=== PATIENT | female | born 1955 | race Caucasian/White ===

== ENCOUNTER 2024-04-09 10:32 | Emergency (ER) | payer OTHER, MEDICARE, SELFPAY ==
[2024-04-09 10:36] VITALS: BP 159/82; PULSE 78; TEMP 36.6; O2SAT 97; BMI 26.8
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
--- NOTE | 2024-04-09 10:39 | ECG_ITS ---
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
[2024-04-09 11:06] LABS: Basophils Absolute Auto 0.1 10^3/uL (0.0-0.1); Basophils Percent Auto 0.3 % (0.2-2.0); Eosinophils Percent Auto 0.2 % (0.9-7.0); Hematocrit 39.2 % (36.0-48.0); Hemoglobin 13.3 g/dL (12.0-16.0); Immature Granulocytes Abs Auto 0.17 10^3/uL (0.00-0.03); Immature Granulocytes Pct Auto 1.1 % (0.0-0.5); Lymphocytes Absolute Auto 1.1 10^3/uL (1.2-3.8); Lymphocytes Percent Auto 6.6 % (20.5-60.0); Mean Corpuscular HGB Conc 33.9 g/dL (29.9-35.2); Mean Corpuscular Hemoglobin 30.9 pg (26.7-34.0); Mean Corpuscular Volume 91.2 fL (81.0-99.0); Mean Platelet Volume 9.5 fL (9.5-13.5); Monocytes Absolute Auto 0.4 10^3/uL (0.3-0.8); Monocytes Percent Auto 2.5 % (1.7-12.0); Neutrophils Absolute Auto 14.3 10^3/uL (1.4-6.5); Neutrophils Percent Auto 89.3 % (43.0-75.0); Platelet Count 263 10^3/uL (150-450); Red Cell Distribution Width 14.1 % (11.0-15.0)
[2024-04-09 11:16] LABS: INR 0.99; Partial Thromboplastin Time 26.8 sec (22.3-36.2); Prothrombin Time 10.5 sec (9.0-11.6)
[2024-04-09 11:19] LABS: Alanine Aminotransferase 29 U/L (14-59); Albumin Globulin Ratio 1.1; Albumin Level 3.6 g/dL (3.4-5.0); Alkaline Phosphatase 85 U/L (46-116); Anion Gap 17.2; Aspartate Amino Transferase 26 U/L (15-37); BUN Creatinine Ratio 14.8; Bilirubin Total 0.9 mg/dL (0.2-1.0); Calcium 9.1 mg/dL (8.5-10.1); Carbon Dioxide 23.4 mmol/L (21.0-32.0); Chloride 103 mmol/L (98-107); Estimated GFR (African America >60 (>=60); Estimated GFR (Non-African Ame >60 (>=60); Globulin 3.4 g/dL; Glucose 121 mg/dL (74-106); Potassium 3.6 mmol/L (3.5-5.1); Sodium 140 mmol/L (136-145); Troponin I High Sensitivity <4.0 pg/mL (4.0-51.3)
[2024-04-09] MEDS: ADACEL DIPH,PERTUSS(ACELL),TET VAC/PF 0.5 ML ADULT SYRINGE IM (12:06)
[2024-04-09 12:08] VITALS: BP 167/76; PULSE 74; O2SAT 97
[2024-04-09 13:19] VITALS: BP 164/72; PULSE 88; O2SAT 98
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
== END 2024-04-09 14:21 | disposition left against medical advice (07) ==
PROVIDERS: Emergency Provider Emergency Medicine; Family Provider Internal Medicine
DX: S50.11XA Contusion of right forearm, initial encounter (principal); S80.01XA Contusion of right knee, initial encounter; S50.312A Abrasion of left elbow, initial encounter; S80.212A Abrasion, left knee, initial encounter; S80.211A Abrasion, right knee, initial encounter; V53.5XXA Driver of pick-up truck or van injured in collision with car, pick-up truck or van in traffic accident, initial encounter; Z53.29 Procedure and treatment not carried out because of patient's decision for other reasons; Z23 Encounter for immunization
CPT/HCPCS: 36415; 70450; 71045; 71250; 72125; 73080; 73090; 73562; 74176; 80053; 84484; 85025; 85610; 85730; 86850; 86900; 86901; 90471; 90715; 93005; 99285

== ENCOUNTER 2024-09-01 09:12 | Outpatient (OUT) | payer MEDICARE, SELFPAY ==
--- OUTSIDE RECORDS SUMMARY | 2024-09-01 09:18 | XMS_ITS | CCD ---
Author Organization [facility] Care Team Providers Care [employer] Teacher Name Role Phone PAT KINCAID Referring Unavailable PAT KINCAID Primary Care Unavailable BINTA PRAJAPATI Attending UnavailColin Benítez MD Primary Care Provider Binta Prajapati NP Unavailable Allergies Allergy Classification Reported Allergen(s) Allergy Type Date of Onset Reaction(s) Facility (3 sources) Acetaminophen / HYDROcodone; Translations: [HYDROCODONE-ACET AMINOPHEN] Drug Allergy 05-11-20 16 [facility] (1 source) Adhesive agent; Translations: [ADHESIVE] Propensity to adverse reactions to drug (disorder) 05-11-20 16 [facility] (1 source) Contrast media; Translations: [DYE] Propensity to adverse reactions to drug (disorder) 03-11-20 18 [facility] (1 source) HYMENOPTERA ALLERGENIC EXTRACT; Translations: [HYMENOPTERA ALLERGENIC EXTRACT] Drug Allergy 05-11-20 16 [facility] (1 source) NSAIDs; Translations: [NSAIDS (NON-STEROIDAL ANTI-INFLAMMATORY DRUG)] Propensity to adverse reactions to drug (disorder) 05-11-20 16 [facility] (1 source) VIT E-NONOXYNOL 9-ALOE VERA; Translations: [VIT E-NONOXYNOL 9-ALOE VERA] Propensity to adverse reactions to drug (disorder) 05-11-20 16 [facility] (5 sources) Acetaminophen Drug Allergy 03-11-20 24 GI intolerance [facility] (5 sources) HYDROcodone Drug Allergy 03-11-20 24 GI intolerance [facility] (3 sources) plastic tape Allergy to substance 03-11-20 24 Rash [facility] (2 sources) Non-steroidal anti-inflammatory agent Drug Intolerance 05-11-20 16 [facility] (2 sources) wasp venom Propensity to adverse reactions 05-11-20 16 [facility] (2 sources) Iodinated Contrast Media Propensity to adverse reactions 08-08-20 Anaphylaxis [facility] (2 sources) Wound Dressing Adhesive Drug Intolerance 05-11-20 16 [facility] Medications Current Medications Medication Drug Class(es) Dates Sig (Normalized) Sig (Original) clonazePAM 2 mg oral tablet (5 sources) Benzodiazepine Start: 08-10-2024 End: 09-09-2024 take 1 tablet by mouth at bedtime clonazePAM (KlonoPIN) 2 MG tablet Indications: Insomnia, unspecified type , Anxiety disorder, unspecified type Take 1 tablet (2 mg) by mouth at bedtime 30 tablet 08/10/2024 09/09/2024 Active Start: 03-11-2024 take 3 mg by mouth o nce daily at bedtime Clonazepam Active 3 MG PO Daily at bedtime March 11, 2024 12:00am DULoxetine 60 mg delayed release oral capsule (7 sources) Serotonin and Norepinephrine Reuptake Inhibitor Start: 08-21-2024 End: 08-21-2025 take 1 capsule by mouth once daily DULoxetine (Cymbalta) [address] capsule Indications: Bipolar affective disorder in remission (CMS/HCC) Take 1 capsule (60 mg) by mouth Daily Do not crush or chew. 30 capsule 11 08/21/2024 08/21/2025 Active Start: 08-21-2024 End: 08-21-2024 take 2 capsules by mouth in the morning DULoxetine (Cymbalta) [address] capsule Take 2 capsules (60 mg) by mouth in the morning. 08/21/2024 08/21/2024 Discontinued (Dose adjustment) Start: 03-11-2024 Duloxetine Act elis MG PO March 11, 2024 12:00am Start: 09-08-2023 End: 08-21-2024 take 1 capsule by mouth in the morning DULoxetine (Cymbalta) [address] capsule Take 30 mg by mouth in the morning. 09/08/2023 08/21/2024 Discontinued (Dose adjustment) pantoprazole 40 mg delayed release oral tablet (5 sources) Proton Pump Inhibitor Start: 03-11-2024 take 1 tablet by mouth before breakfast pantoprazole (ProtoNix) 40 MG EC tablet take 1 tablet by mouth in the morning before breakfast 03/11/2024 Active Start: 03-11-2024 Pantoprazole A ctive MG PO March 11, 2024 12:00am predniSONE 20 mg oral tablet (6 sources) Start: 04-14-2024 End: 06-07-2024 take 3 tablets by mouth once daily, then take 2 tablets by mouth once daily, then take 1 tablet by mouth once daily Prednisone Active 20 MG PO .COMPLEX June 07, 2024 12:00am Take 3 tabs po daily x 3 days, then take 2 tabs po daily x 3 days, then take 1 tab po daily x 3 days. Start: 03-11-2024 End: 04-14-2024 take 1 tablet by mouth three times daily, then take 1 tablet by mouth twice daily, then take 1 tablet by mouth once daily, then take 0.5 tablet by mouth once daily, then take 0.5 tablet by mouth every other day Prednisone Discontinued 20 MG PO .COMPLEX 14 March 11, 2024 12:00am April 14, 2024 11:35am Take 1 tablet p.o. 3 times daily x 2 days, 1 tablet p.o. twice daily x 2 days, 1 tablet daily x 2 days. 1/2 tablet daily x 2 days, 1/2 tablet every other day x 2 days. traZODone hydrochloride 150 mg oral tablet (6 sources) Serotonin Reuptake Inhibitor Start: 08-22-2024 take 1 tablet by mouth at bedtime traZODone (Desyrel) 150 MG tablet Indications: Other insomnia Take 1 tablet (150 mg) by mouth at bedtime 30 tablet 1 08/22/2024 Active Start: 03-11-2024 take 75 mg by mouth once daily at bedtime Trazodone Active 75 MG PO Daily at bedtime March 11, 2024 12:00am End: 08-22-2024 take 0.5 tablet by mouth once daily traZODone (Desyrel) 150 MG tablet TAKE 1/2 (ONE-HALF) TABLET BY MOUTH NIGHTLY 08/22/2024 Discontinued (Reorder) Problems Active Problems Problem Classification Problem Date Documented Date Episodic/Chronic Administrative/socia l admission (2 sources) First encounter by subject; Translations: [Persons encountering health services in other specified circumstances] Onset: 08-08-2024 08-08-2024 Episodic Allergic reactions (8 sources) Contact dermatitis; Translations: [Unspecified contact dermatitis, unspecified cause] Onset: 08-08-2024 04-14-2024 Episodic Anxiety disorders (4 sources) Anxiety; Translations: [Anxiety disorder, unspecified] Onset: 03-02-2018 04-14-2024 Chronic Disorders of lipid metabolism (2 sources) Hyperlipidemia; Translations: [Hyperlipidemia, unspecified] Onset: 05-11-2016 08-08-2024 Chronic Esophageal disorders (4 sources) Gastroesophageal reflux disease; Translations: [Gastro-esophageal reflux disease without esophagitis] Onset: 05-11-2016 04-14-2024 Chronic Mood disorders (6 sources) Depressive disorder; Translations: [Depression, unspecified depression type (CMS/HCC)] Onset: 05-11-2016 08-21-2024 Chronic Osteoarthritis (2 sources) Osteoarthritis; Translations: [Unspecified osteoarthritis, unspecified site] Onset: 05-11-2016 08-08-2024 Chronic Other nutritional; endocrine; and metabolic disorders (2 sources) Overweight in adulthood with body mass index of 25 or more but less than 30; Translations: [Body mass index (BMI) 25.0-25.9, adult] Onset: 08-08-2024 08-08-2024 Episodic Other screening for suspected conditions (not mental disorders or infectious disease) (5 sources) Encounter for screening mammogram for malignant neoplasm of breast; Translations: [Patient encounter status] Onset: 12-20-2023 08-08-2024 Episodic Other upper respiratory disease (2 sources) Vasomotor rhinitis; Translations: [Vasomotor rhinitis] Onset: 02-01-2019 08-08-2024 Chronic Residual codes; unclassified (1 source) Insomnia; Translations: [Other insomnia] 08-22-2024 Chronic Spondylosis; intervertebral disc disorders; other back problems (2 sources) Cervical spondylosis; Translations: [Other spondylosis with radiculopathy, cervical region] Onset: 05-11-2016 08-08-2024 Chronic Unclassified (2 sources) Patient on antidepressant monitoring plan Onset: 08-21-2024 08-21-2024 Past or Other Problems Problem Classification Problem Date Documented Da te Episodic/Chronic Mood disorders (2 sources) Mood disorders Onset: 08-08-2024 08-08-2024 Other non-traumatic joint disorders (2 sources) Ankle joint pain; Translations: [Pain in unspecified ankle and joints of unspecified foot] Onset: 05-11-2016 08-08-2024 Episodic Other nutritional; endocrine; and metabolic disorders (2 sources) Severe obesity; Translations: [Morbid (severe) obesity due to excess calories] Onset: 06-08-2019 Resolved: 08-08-2024 08-08-2024 Chronic Other upper respiratory disease (2 sources) Deviated nasal septum; Translations: [Deviated nasal septum] Onset: 02-01-2019 08-08-2024 Episodic Other upper respiratory disease (2 sources) Hypertrophy of nasal turbinates; Translations: [Hypertrophy of nasal turbinates] Onset: 02-01-2019 08-08-2024 Episodic Residual codes; unclassified (4 sources) Insomnia; Translations: [Insomnia, unspecified] Onset: 05-11-2016 04-14-2024 Episodic Sprains and strains (2 sources) Strain of trapezius muscle; Translations: [Strain of other muscles, fascia and tendons at shoulder and upper arm level, unspecified arm, initial encounter] Onset: 03-02-2018 08-08-2024 Episodic Vital Signs Date Time Vital Sign Value Performing Clinician Ben lowery 06-07-2024 10:00-0400 Body height 163.83 cm [facility] 06-07-2024 10:00-0400 Body mass index (BMI) [Ratio] 25.2 kg/m2 [facility] 06-07-2024 10:00-0400 Body temperature 97.6 [degF] [facility] 06-07-2024 10:00-0400 Body weight 67.81 kg [facility] 06-07-2024 10:00-0400 Heart rate 68 /min [facility] 06-07-2024 10:00-0400 Respiratory rate 16 /min [facility] 06-07-2024 10:00-0400 SaO2% (BldA) [Mass fraction] 92 % [facility] 04-14-2024 11:06-0400 Body height 165.1 cm [facility] 04-14-2024 11:06-0400 Body mass index (BMI) [Ratio] 25.7 kg/m2 [facility] 04-14-2024 11:06-0400 Body temperature 97.7 [degF] [facility] 04-14-2024 11:06-0400 Body weight 70.3 kg [facility] 04-14-2024 11:06-0400 Heart rate 72 /min [facility] 04-14-2024 11:06-0400 SaO2% (BldA) [Mass fraction] 98 % [facility] 03-11-2024 11:18-0400 Body height 165.1 cm [facility] 03-11-2024 11:18-0400 Body mass index (BMI) [Ratio] 28.7 kg/m2 [facility] 03-11-2024 11:18-0400 Body temperature 98.6 [degF] [facility] 03-11-2024 11:18-0400 Body weight 78.24 kg [facility] 03-11-2024 11:18-0400 Heart rate 57 /min [facility] 03-11-2024 11:18-0400 Respiratory rate 16 /min [facility] 03-11-2024 11:18-0400 SaO2% (BldA) [Mass fraction] 97 % [facility] Encounters Encounter Date Encounter Type Care Provider Facility Start: 08-22-2024 End: 08-22-2024 Refill Binta Prajapati PRICING CONSULTANT Work Phone: [facility] Comment on above: Other insomnia (Prim victorino Dx) Start: 08-21-2024 End: 08-21-2024 Orders Only Binta Prajapati PRICING CONSULTANT Work Phone: [facility] Comment on above: Depression, unspecif ied depression type (CMS/HCC) (Primary Dx); Bipolar affective disorder in remission (CMS/HCC) Start: 08-08-2024 Patient encounter status Binta Prajapati PRICING CONSULTANT Work Phone: [facility] Start: 08-08-2024 End: 08-08-2024 ambulatory BINTA PRAJAPATI Not Available Start: 06-07-2024 End: 06-07-2024 ambulatory [facility] Work Phone: Start: 06-07-2024 End: 06-07-2024 Patient encounter procedure [facility] Physician [facility] Work Phone: Start: 04-14-2024 End: 04-14-2024 ambulatory [facility] Work Phone: Start: 04-14-2024 End: 04-14-2024 Patient encounter procedure [facility] Physician [facility] Work Phone: Start: 03-11-2024 End: 03-11-2024 ambulatory [facility] Work Phone: Start: 03-11-2024 End: 03-11-2024 Patient encounter procedure [facility] Physician [facility] Work Phone: Start: 12-20-2023 End: 12-21-2023 ambulatory [facility] Procedures Date Procedure Procedure Detail Performing Clinician Start: 12-20-2023 Mammography Binta boyd NP Work Phone: Plan of Treatment Date Care Activity Detail Author Start: 01-25-2026 Screening for malignant neoplasm of colon [facility] Start: 12-20-2024 Screening for malignant neoplasm of breast Mammogram [facility] Start: 09-19-2024 End: 09-19-2024 Patient encounter procedure 09/19/2024 9:30 AM EST Office Visit [facility] [address] [place] [address] Binta Prajapati NP [address] [place] [address] [facility] Start: 09-08-2024 Medicare Annual Wellness (AWV) Medicare Annual Wellness (AWV) [facility] Start: 08-30-2024 End: 08-30-2024 Patient encounter procedure 08/30/2024 1:30 PM EDT Office Visit [facility] [address] [place] [address] Keyshawn Armstrong DO [address] [place] [address] [facility] [address] Start: 07-16-2024 Influenza vaccination Influenza Vaccine (#1) [facility] Start: 04-14-2023 Screening for malignant neoplasm of colon CT Colonography [facility] Start: 2022 Pneumococcal Vaccine: 65+ Years (1 of 1 - PCV) Pneumococcal Vaccine: 65+ Years (1 of 1 - PCV) [facility] Start: 1955 Screening for malignant neoplasm of colon [facility] Payers Date Payer Category Payer Medicare AETNA MEDICARE A DVANTAGE AETNA MEDICARE REPLACEMENT [id number] 2024-Present [address] [place] [address] [id number] 2024 Private Health Insurance [id number] 2015 Medicare [id number] 1955 Unknown [id number] 1955 Unknown [id number] Social History Date Type Detail Facility Start: 03-11-2024 End: 08-08-2024 Tobacco smoking status NHIS Ex-smoker (finding) [facility] Start: 1955 Sex Assigned At Female F [facility] Start: 11-15-1970 History of tobacco use Current smoke r [facility] Start: 11-15-1970 History of tobacco use Cigarette Smo ker [facility] Start: 08-01-2024 End: 08-08-2024 Cigarettes smoked current (pack per day) - Reported 0.5 [facility] History of tobacco use Passive smoker [facility] Start: 08-08-2024 Tobacco use and exposure Smoke less tobacco non-user [facility] Start: 08-08-2024 Alcoholic beverage intake Defer [facility] Start: 08-01-2024 End: 08-08-2024 [id number] Health Literacy [facility] How often do you nee d to have someone help you when you read instructions, pamphlets, or other written material from your doctor or pharmacy [SILS] Never [facility] Do you belong to any clubs or organizations such as jew groups, unions, fraternal or athletic groups, or school groups? No [facility] Are you now , , , , never or living with a partner? [facility] How often to you hav e a drink containing alcohol? Never [facility] How hard is it for y ou to pay for the very basics like food, housing, medical care, and heating Somewhat hard [facility] Do you feel stress - tense, restless, nervous, or anxious, or unable to sleep at night because your mind is troubled all the time - these days [OSQ] To some extent [facility] (I/We) worried wheth er (my/our) food would run out before (I/we) got money to buy more. Sometimes true [facility] Start: 1955 Sex assigned at Not on file [facility] Goals Date Patient Goal Desired Activity /State Personal health goal Telephone encounter Note 08-22-2024 Telephone Encounter - Giovanna Phan - 08/22/2024 1:24 PM EDT Note Date & Type Note Facility 08-22-2024 Telephone encount er Note Patient stopped in saying the Clonazepam should be 3mg, not 2mg. JN [facility] Note 08-22-2024 Telephone Encounter - Giovanna Phan - 08/22/2024 1:24 PM EDT Note Date & Type Note Facility 08-22-2024 Miscellaneous Notes Formattin g of this note might be different from the original. Patient stopped in saying the Clonazepam should be 3mg, not 2mg. JN documented in this encounter [facility] Evaluation note Note Date & Type Note Facility Evaluation note No assessment information availa ble [facility] Work Phone: Evaluation note Note Date & Type Note Facility Evaluation note Diagnosis Onset Date Contact dermatitis noneactiv e Contact dermatitis acute [facility] Work Phone: Evaluation note Note Date & Type Note Facility Evaluation note Diagnosis Depression, unspecified depression type (CMS/HCC)- Primary Bipolar affective disorder in remission ([facility]) documented in this encounter [facility] Evaluation note Note Date & Type Note Facility Evaluation note Diagnosis Other insomnia- Primary documented in this encounter [facility] Summary Purpose Family History Relationship Condition Age at Onset Recorded Date/T edward father Malignant neoplasm Unknown Not Specified Dementia Unknown Relationship Condition Age at Onset Recorded Date/T edward father Malignant neoplasm Unknown mother Dementia Unknown Advance Directives Advance Directive Response Recorded Date/ Time Advance Directives No March 11 10:40am Chief Complaint and Reason for Visit Chief Complaint Rash, skin irritatio n Chief Complaint Rash, skin irritatio n Rash Reason for Visit Contact dermatitis Contact dermatitis Chief Complaint Rash, skin irritatio n Rash Rash on arms, face, neck Reason for Visit Contact dermatitis Contact dermatitis Additional Source Comments INFORMATION SOURCE (unrecogn ized section and content) DATE CREATED AUTHOR 12/25/2023 [facility] DATE CREATED AUTHOR AUTHOR'S ORGANIZ ATION 08/10/2024 [facility] Care Teams (unrecognized sec tion and content) Team Status: Active Member Role Status Dates Pat Kincaid APRN Primary Care Provider Active Team Status: Inactive Member Role Status Dates NILESH Leslie Attending Provider Active S tart: March 11, 2024 End: March 11, 2024 Pat Kincaid APRN Primary Care Provider Active Start: March 11, 2024 End: March 11, 2024 Team Status: Inactive Member Role Status Dates Pat Kincaid APRN Primary Care Provider Active Start: April 14, 2024 End: April 14, 2024 Radha Bueno APRN Attending Provider Active Start: April 14, 2024 End: April 14, 2024 Team Status: Inactive Member Role Status Dates Pat Kincaid APRN Primary Care Provider Active Start: June 07, 2024 End: June 07, 2024 Radha Bueno APRN Attending Provider Active Start: June 07, 2024 End: June 07, 2024 [employer] Teacher Relationship Specialty Start Date End Date Colin Sanchez MD [address] [place] [id number] PCP - General Family Medicine 07/24/24 Binta Prajapati NP [address] [place] [address] Nurse Practitioner Family Medicine 07/24/24 [employer] Teacher Relationship Specialty Start Date End Date Colin Sanchez MD [address] [place] [id number] PCP - General Family Medicine 07/24/24 Binta Prajapati NP [address] [place] [address] Nurse Practitioner Family Medicine 07/24/24 Goals (unrecognized section and content) Goals may be documented in a n alternate sectionGoals may be documented in an alternate sectionGoals may be documented in an alternate section Reason for Visit (unrecogniz ed section and content) Reason Onset Date Comments Med Refill 08/22/2024 FOR RECORDS PERTAINING TO PATIENTS WHO ARE OR HAVE BEEN ENROLLED IN A CHEMICAL DEPENDENCY/SUBSTANCEABUSE PROGRAM, SOME INFORMATION MAY BE OMITTED. This clinical summary was aggregated from multiple sources. Caution should be exercised in using it in the provision of clinical care. This summary normalizes information from multiple sources, and as a consequence, information in this document may materially change the coding, format and clinical context of patient data. In addition, data may be omitted in some cases. CLINICAL DECISIONS SHOULD BE BASED ON THE PRIMARY CLINICAL RECORDS. [facility] [facility]. provides no warranty or guarantee of the accuracy or completeness of information in this document.
[2024-09-01 09:58] LABS: Basophils Absolute Auto 0.1 10^3/uL (0.0-0.1); Eosinophils Absolute Auto 0.1 10^3/uL (0.0-0.7); Eosinophils Percent Auto 1.4 % (0.9-7.0); Hematocrit 40.1 % (36.0-48.0); Hemoglobin 13.6 g/dL (12.0-16.0); Immature Granulocytes Abs Auto 0.01 10^3/uL (0.00-0.03); Immature Granulocytes Pct Auto 0.1 % (0.0-0.5); Lymphocytes Absolute Auto 2.4 10^3/uL (1.2-3.8); Lymphocytes Percent Auto 30.3 % (20.5-60.0); Mean Corpuscular HGB Conc 33.9 g/dL (29.9-35.2); Mean Corpuscular Volume 91.3 fL (81.0-99.0); Mean Platelet Volume 9.9 fL (9.5-13.5); Monocytes Absolute Auto 0.5 10^3/uL (0.3-0.8); Monocytes Percent Auto 6.4 % (1.7-12.0); Neutrophils Absolute Auto 4.8 10^3/uL (1.4-6.5); Neutrophils Percent Auto 60.8 % (43.0-75.0); Platelet Count 253 10^3/uL (150-450); Red Blood Count 4.39 10^6/uL (4.20-5.40); Red Cell Distribution Width 12.7 % (11.0-15.0); White Blood Count 7.9 10^3/uL (4.0-11.0)
[2024-09-01 10:54] LABS: Estimated Average Glucose 105 mg/dL; Glycohemoglobin A1C 5.3 % (4.5-6.2)
[2024-09-01 11:11] LABS: Alanine Aminotransferase 22 U/L (14-59); Albumin Level 3.4 g/dL (3.4-5.0); Alkaline Phosphatase 96 U/L (46-116); Anion Gap 12.6; Aspartate Amino Transferase 18 U/L (15-37); BUN Creatinine Ratio 20.8; Bilirubin Total 0.4 mg/dL (0.2-1.0); Calcium 10.3 mg/dL (8.5-10.1); Carbon Dioxide 28.5 mmol/L (21.0-32.0); Chloride 106 mmol/L (98-107); Cholesterol 253 mg/dL (<=200); Estimated GFR (African America >60 (>=60 mL/min/1.73m^2); Estimated GFR (Non-African Ame >60 (>=60 mL/min/1.73m^2); Globulin 3.4 g/dL; Glucose 110 mg/dL (74-106); HDL Cholesterol 68 mg/dL (40-60); Potassium 4.1 mmol/L (3.5-5.1); Sodium 143 mmol/L (136-145); Total Protein 6.8 g/dL (6.4-8.2); Triglycerides 91 mg/dL (<=150); VLDL CHOLESTEROL 18.2 mg/dL
[2024-09-01 11:12] LABS: Chol HDL Ratio 3.7; TSH W/ REFLEX FT4 2.543 uIU/mL (0.358-3.740)
== END 2024-09-01 09:13 | disposition home or self-care (01) ==
LOC: LAB 09:16
PROVIDERS: Family Provider Internal Medicine
DX: Z00.00 Encounter for general adult medical examination without abnormal findings (principal)
CPT/HCPCS: 36415; 80053; 80061; 83036; 84443; 85025

== ENCOUNTER 2024-09-04 13:57 | Outpatient (OUT) | payer MEDICARE, SELFPAY ==
--- NOTE | 2024-09-04 14:29 | XR_ITS ---
The [address] [address] Patient Name: MARCELINA BUCHANAN MRN: [facility]:[id number] date: 1955 Sex: F Assigned Patient Location: [facility] Current Patient Location: Accession/Order Number: [id number] Exam Date: 09/04/2024 14:35 Report Date: 09/06/2024 06:23 At the request of: HILARIO PALMA Procedure: XR lumbar spine min 4V EXAMINATION: XR lumbar spine min 4V HISTORY: Low Back Pain At multiple Sites COMPARISON: CT abdomen pelvis 04/09/2024 FINDINGS: BONES: Moderate compression fracture of L3 vertebral body with loss of 30% of its anterior height. Greater density along superior margin. Mild degenerative facet arthropathy L4-L5, L5-S1. DISC SPACES: Mild narrowing L5-S1. PARASPINOUS: Negative. No paraspinous abnormality is seen. OTHER: Negative. XR/XR lumbar spine min 4V IMPRESSION: 1. L3 moderate compression fracture which appears to have progressed since 04/09/2024. Electronically authenticated by: DAILY KUNZ Date: 09/06/2024 06:23
== END 2024-09-04 13:58 | disposition home or self-care (01) ==
LOC: RAD 14:02
PROVIDERS: Family Provider Internal Medicine; Visit Provider Psychiatry & Neurology Neurology
DX: M54.50 Low back pain, unspecified (principal); M53.9 Dorsopathy, unspecified; M48.56XG Collapsed vertebra, not elsewhere classified, lumbar region, subsequent encounter for fracture with delayed healing
CPT/HCPCS: 72110

== ENCOUNTER 2024-09-30 14:10 | Emergency (ER) | payer MEDICARE, SELFPAY ==
[2024-09-30 14:14] VITALS: BP 169/101; PULSE 102; TEMP 36.9; O2SAT 98; BMI 25.2
--- OUTSIDE RECORDS SUMMARY | 2024-09-30 14:17 | XMS_ITS | CCD ---
Author Organization [facility] Inform ion Partnership [facility] Care Team Providers Care Reverse Logistics Analyst Name Role Phone Alee Loza Primary Care Provider ALEE KINCAID Referring Unavailable ALEE KINCAID Primary Care Unavailable Colin Sanchez MD Primary Care Provider [phone] Binta Nair NP Unavailable Unavailable Primary Care Provider UnavailBINTA Rosales Attending UnavailHILAROI Canela Attending Unavailable BINTA NAIR Referring UnavailDORIS Hillman Attending Unavailable HILARIO ARMSTORNG Referring Unavailable DORIS TURCIOS Attending Unavailable HILARIO ARMSTRONG Referring Unavailable ESSENCE SCHMIDT Attending Unavailable HILARIO ARMSTRONG Referring Unavailable BINTA NAIR Attending UnavailESSENCE Ruiz Attending Unavailable HILARIO ARMSTRONG Referring Unavailable ROSEMARY RODRÍGUEZ Attending Unavailable HILARIO ARMSTRONG Referring Unavailable DORIS TURCIOS Attending Unavailable HILARIO ARMSTRONG Referring Unavailable Allergies Allergy Classification Reported Allergen(s) Allergy Type Date of Onset Reaction(s) Facility (20 sources) Acetaminophen / HYDROcodone; Translations: [HYDROCODONE-ACET AMINOPHEN] Drug Allergy 05-11-20 16 [facility] (5 sources) Adhesive agent; Translations: [ADHESIVE] Propensity to adverse reactions to drug 05-11-20 16 [facility] (5 sources) Contrast media; Translations: [DYE] Propensity to adverse reactions to drug 03-11-20 18 Anaphylaxis [facility] (5 sources) HYMENOPTERA ALLERGENIC EXTRACT; Translations: [HYMENOPTERA ALLERGENIC EXTRACT] Drug Allergy 05-11-20 16 [facility] (5 sources) Non-steroidal anti-inflammatory agent; Translations: [NSAIDS (NON-STEROIDAL ANTI-INFLAMMATORY DRUG)] Propensity to adverse reactions to drug 05-11-20 16 [facility] Work Phone: (5 sources) Vit E-Nonoxynol 9-Aloe Vera; Translations: [VIT E-NONOXYNOL 9-ALOE VERA] Propensity to adverse reactions to drug 05-11-20 16 [facility] (20 sources) Acetaminophen Drug Allergy 03-11-20 24 GI intolerance [facility] (20 sources) HYDROcodone Drug Allergy 03-11-20 24 GI intolerance [facility] (3 sources) plastic tape Allergy to substance 03-11-20 Rash [facility] (17 sources) Non-steroidal anti-inflammatory agent Drug Intolerance 05-11-20 16 [facility] (17 sources) wasp venom Propensity to adverse reactions 05-11-20 16 [facility] (17 sources) Iodinated Contrast Media Propensity to adverse reactions 08-08-20 Anaphylaxis [facility] (17 sources) Wound Dressing Adhesive Drug Intolerance 05-11-20 16 [facility] Medications Current Medications Medication Drug Class(es) Dates Sig (Normalized) Sig (Original) acetaminophen 325 mg / oxyCODONE hydrochloride 10 mg oral tablet (5 sources) Opioid Agonist Start: 05-26-2024 oxyCODONE-acetaminoph en (PERCOCET) 10-325 mg per tablet Indications: Degeneration of intervertebral disc of cervical region , Post-traumatic osteoarthritis of right ankle , Cervical spondylosis with radiculopathy , Other chronic pain take 1 tablet by mouth every 6 hours if needed for pain maximum daily dose of 4 tablets 28 tablet 05/26/2024 Active Start: 03-10-2023 End: 11-11-2023 oxyCODONE-acetaminophen (PER COCET) 10-325 mg per tablet Indications: Degeneration of intervertebral disc of cervical region , Post-traumatic osteoarthritis of right ankle , Cervical spondylosis with radiculopathy , Other chronic pain take 1 tablet by mouth every 6 hours if needed for pain maximum daily dose of 4 tablets 28 tablet 0 11/11/2023 Active ascorbic acid 500 mg oral tablet (4 sources) Vitamin C take 1 tablet by koko th in the morning ascorbic acid, vitamin C, (VITAMIN C) 500 mg tablet Take 1 tablet (500 mg total) by mouth in the morning. Active b complex vitamins capsule (4 sources) take 1 capsule by mo uth in the morning b complex vitamins capsule Take 1 capsule by mouth in the morning. Active take 1 capsule by mouth in the m orning b complex vitamins capsule Take 1 capsule by mouth in the morning. 0 Active beta-carotene,A,-vits C,E/mi ns (VISION ORAL) (4 sources) beta-carotene,A, -vits C,E/mins (VISION ORAL) Take by mouth. Active beta-carotene,A, -vits C,E/mins (VISION ORAL) Take by mouth. 0 Active betamethasone 0.5 mg/ml topical cream (4 sources) Corticosteroid Start: 05-20-2021 betamethasone dipropionate 0.05 % cream Indications: Poison alis dermatitis Apply 1 application topically 2 (two) times a day. Do not use longer than 2 weeks 30 g 05/20/2021 Active biotin 1 mg oral tablet (4 sources) take 1 tablet by mouth three times daily biotin 1 mg tablet Take 1 tablet (1 mg total) by mouth 3 (three) times a day. Active cholecalciferol 0.025 mg oral capsule (4 sources) Vitamin D take 1 capsule by mouth in the morning cholecalciferol, vitamin D3, 25 mcg (1,000 unit) capsule Take 1 capsule (1,000 Units total) by mouth in the morning. Active clonazePAM 2 mg oral tablet (20 sources) Benzodiazepine Start: 10-04-2024 End: 12-03-2024 take 1.5 tablets by mouth at bedtime clonazePAM (KlonoPIN) 2 MG tablet Indications: Other insomnia Take 1.5 tablets (3 mg) by mouth at bedtime Do not start before October 04, 2024. 45 tablet 1 10/04/2024 12/03/2024 Active Start: 05-06-2024 End: 09-19-2024 take 1 tablet by mouth at bedtime clonazePAM (KlonoPIN) 2 MG tablet Indications: Insomnia, unspecified type , Anxiety disorder, unspecified type Take 1 tablet (2 mg) by mouth at bedtime 30 tablet 08/10/2024 09/19/2024 Discontinued (Dose adjustment) Start: 03-11-2024 take 3 mg by mouth o nce daily at bedtime Clonazepam Active 3 MG PO Daily at bedtime March 11, 2024 12:00am Start: 11-05-2023 End: 12-01-2023 clonazePAM (KlonoPIN) 2 mg t ablet Indications: Insomnia, unspecified type take 1 AND 1/2 tablets by mouth at bedtime 45 tablet 2 12/01/2023 Active DULoxetine 60 mg delayed release oral capsule (20 sources) Serotonin and Norepinephrine Reuptake Inhibitor Start: 08-21-2024 End: 08-21-2024 take 2 capsules by mouth in the morning DULoxetine (Cymbalta) [address] capsule Take 2 capsules (60 mg) by mouth in the morning. 08/21/2024 08/21/2024 Discontinued (Dose adjustment) Start: 03-11-2024 Duloxetine Act elis MG PO March 11, 2024 12:00am Start: 03-08-2024 End: 08-21-2025 take 1 capsule by mouth once daily DULoxetine (Cymbalta) [address] capsule Indications: Bipolar affective disorder in remission (CMS/HCC) Take 1 capsule (60 mg) by mouth Daily Do not crush or chew. 30 capsule 11 08/21/2024 08/21/2025 Active Start: 10-18-2023 take 1 capsule by mo uth in the morning DULoxetine (CYMBALTA) 60 mg capsule Take 1 capsule by mouth in the morning 30 capsule 5 10/18/2023 Active Start: 09-08-2023 End: 08-21-2024 take 1 capsule by mouth in the morning DULoxetine (CYMBALTA) 30 mg capsule Take 1 capsule (30 mg total) by mouth in the morning. For one week. 7 capsule 09/08/2023 Active Lactobacillus acidophilus (4 sources) Lactobacillus ac idophilus (PROBIOTIC ORAL) Take by mouth daily. Active Lactobacillus ac idophilus (PROBIOTIC ORAL) Take by mouth daily. 0 Active lysine 1000 mg oral tablet (4 sources) lysine 1,000 mg tablet Take by mouth. Active magnesium oxide 400 mg oral capsule (4 sources) magnesium oxide 400 mg capsule Magnesium CAPS Refills: 0 Active Active nystatin 880318 unt/ml topical cream (8 sources) Polyene Antifungal Start: 09-08-2023 nystatin (MYCOSTATIN) cream apply to affected area twice a day 30 g 09/08/2023 Active Start: 12-11-2020 NYAMYC powder apply to affected area four times a day 15 g 12/11/2020 Active pantoprazole 40 mg delayed release oral tablet (20 sources) Proton Pump Inhibitor Start: 03-11-2024 take 1 tablet by mouth before breakfast pantoprazole (ProtoNix) 40 MG EC tablet take 1 tablet by mouth in the morning before breakfast 03/11/2024 Active Start: 03-11-2024 Pantoprazole A ctive MG PO March 11, 2024 12:00am Start: 09-24-2023 End: 12-21-2023 take 1 tablet by mouth once daily pantoprazole (PROTONIX) 40 mg EC tablet Take 1 tablet by mouth once daily 90 tablet 0 12/21/2023 Active predniSONE 20 mg oral tablet (7 sources) Start: 04-14-2024 End: 06-07-2024 take 3 [...] tab po daily x 3 days. Start: 03-23-2024 predniSONE (DE LTASONE) 10 mg tablet Take 5 tablets in the morning for 3 days, 4 tablets in the morning for 3 days, 3 tablets in the morning for 3 days, 2 tablets in the morning for 3 days, 1 tablet in the morning for 3 days then stop 45 tablet 03/23/2024 Active Start: 03-11-2024 End: 04-14-2024 take 1 tablet [...] days. traZODone hydrochloride 150 mg oral tablet (20 sources) Serotonin Reuptake Inhibitor Start: 09-19-2024 take 0.5 tablet by mouth at bedtime traZODone (Desyrel) 150 MG tablet Indications: Other insomnia Take 0.5 tablets (75 mg) by mouth at bedtime 09/19/2024 Active Start: 08-22-2024 End: 09-19-2024 take 1 tablet by mouth at bedtime traZODone (Desyrel) 150 MG tablet Indications: Other insomnia Take 1 tablet (150 mg) by mouth at bedtime 30 tablet 1 08/22/2024 09/19/2024 Discontinued (Dose adjustment) Start: 03-11-2024 take 75 mg by mouth once daily at bedtime Trazodone Active 75 MG PO Daily at bedtime March 11, 2024 12:00am Start: 08-19-2023 End: 08-22-2024 take 0.5 tablet by mouth once daily traZODone (DESYREL) 150 mg tablet TAKE 1/2 (ONE-HALF) TABLET BY MOUTH NIGHTLY 30 tablet 5 08/19/2023 Active vitamin e 100 unt oral capsule (4 sources) take 1 capsule by mo uth in the morning vitamin E 100 units capsule Take 1 capsule (100 Units total) by mouth in the morning. Active vitamin k2 0.1 mg oral capsule (4 sources) vitamin K2 100 m cg capsule Take by mouth. Active vitamin K2 100 m cg capsule Take by mouth. 0 Active Problems Active Problems Problem Classification Problem Date Documented Date Episodic/Chronic Administrative/social admission (17 sources) First encounter by subject; Translations: [Persons encountering health services in other specified circumstances] Onset: 08-08-2024 08-08-2024 Episodic Allergic reactions (20 sources) Contact dermatitis; Translations: [Unspecified contact dermatitis, unspecified cause] Onset: 08-08-2024 04-14-2024 Episodic Anxiety disorders (20 sources) Anxiety disorder; Translations: [Anxiety disorder, unspecified] Onset: 03-02-2018 03-02-2018 Chronic Disorders of lipid metabolism (20 sources) Hyperlipidemia; Translations: [Hyperlipidemia, unspecified] Onset: 05-11-2016 05-11-2016 Chronic Esophageal disorders (20 sources) Gastroesophageal reflux disease; Translations: [Gastro-esophageal reflux disease without esophagitis] Onset: 05-11-2016 05-11-2016 Chronic Mood disorders (20 sources) Depressive disorder; Translations: [Depression] Onset: 05-11-2016 05-11-2016 Chronic Osteoarthritis (20 sources) 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; Translations: [Post-traumatic osteoarthritis, right ankle and foot] Onset: 05-11-2016 11-10-2023 Chronic Other nervous system disorders (1 source) Chronic pain; Translations: [Other chronic pain] 11-10-2023 Chronic Other nutritional; endocrine; and metabolic disorders (17 sources) Overweight in adulthood with body mass index of 25 or more but less than 30; Translations: [Body mass index (BMI) 25.0-25.9, adult] Onset: 08-08-2024 08-08-2024 Episodic Other screening for suspected conditions (not mental disorders or infectious disease) (20 sources) Encounter for screening mammogram for malignant neoplasm of breast; Translations: [Patient encounter status] Onset: 12-20-2023 08-08-2024 Episodic Other upper respiratory disease (20 sources) Vasomotor rhinitis; Translations: [Vasomotor rhinitis] Onset: 02-01-2019 02-01-2019 Chronic Peripheral and visceral atherosclerosis (7 sources) Atherosclerosis of aorta; Translations: [Atherosclerosis of aorta] Onset: 09-19-2024 09-19-2024 Chronic Residual codes; unclassified (3 sources) Insomnia; Translations: [Other insomnia] 08-22-2024 Chronic Spondylosis; intervertebral disc disorders; other back problems (20 sources) Degeneration of cervical intervertebral disc; Translations: [Other cervical disc degeneration, unspecified cervical region] Onset: 05-11-2016 11-10-2023 Chronic Spondylosis; intervertebral disc disorders; other back problems (15 sources) Low back pain; Translations: [Low back pain at multiple sites] Onset: 09-22-2024 08-30-2024 Episodic Unclassified (17 sources) Patient on antidepressant monitoring plan Onset: 08-21-2024 08-21-2024 Past or Other Problems Problem Classification Problem Date Documented Da te Episodic/Chronic Mood disorders (20 sources) Mood disorders Onset: 04-26-2023 Resolved: 08-08-2024 04-26-2023 Other non-traumatic joint disorders (20 sources) Ankle joint pain; Translations: [Pain in unspecified ankle and joints of unspecified foot] Onset: 05-11-2016 05-11-2016 Episodic Other nutritional; endocrine; and metabolic disorders (20 sources) Severe obesity; Translations: [Morbid (severe) obesity due to excess calories] Onset: 06-08-2019 Resolved: 08-08-2024 06-08-2019 Chronic Other upper respiratory disease (20 sources) Deviated nasal septum; Translations: [Deviated nasal septum] Onset: 02-01-2019 02-01-2019 Episodic Other upper respiratory disease (20 sources) Hypertrophy of nasal turbinates; Translations: [Hypertrophy of nasal turbinates] Onset: 02-01-2019 02-01-2019 Episodic Residual codes; unclassified (20 sources) Insomnia; Translations: [Insomnia, unspecified] Onset: 05-11-2016 05-11-2016 Episodic Sprains and strains (20 sources) Strain of trapezius muscle; Translations: [Strain of other muscles, fascia and tendons at shoulder and upper arm level, unspecified arm, initial encounter] Onset: 03-02-2018 03-02-2018 Episodic Unclassified (4 sources) Onset: 08-31-2018 08-31-2018 Results Test Name Value Interpretation Reference Range Facil ity ALL CBC WITH AUTO DIFFon BASOPHILS ABSOLUTE AUTO 0.1 N [facility] Basophils/100 WBC (Bld) 1 % 0.2 - 2.0 % [facility] Healthcare Eosinophils/100 WBC (Bld) 1.4 % 0.9 - 7.0 % [facility] Erythrocyte distribution width (RBC) [Ratio] 12.7 % 11.0 - 15.0 % [facility] Hemat[facility] (Bld) [Volume fraction] 40.1 % 36.0 - 48.0 % [facility] Hemoglobin (Bld) [Mass/Vol] 13.6 g/dL 12.0 - 1 6.0 g/dL [facility] IMMATURE GRANULOCYTES ABS AUTO 0.01 [facility] Immature granulocytes/100 WBC (Bld) 0.1 % 0.0 - 0.5 % [facility] Healthcare LYMPHOCYTES ABSOLUTE AUTO 2.4 [facility] Lymphocytes/100 WBC (Bld) 30.3 % 20.5 - 60. 0 % [facility] MCH (RBC) [Entitic mass] 31 pg 26.7 - 34.0 pg [facility] MCHC (RBC) [Mass/Vol] 33.9 g/dL 29.9 - 35.2 g/ dL [facility] MCV (RBC) [Entitic vol] 91.3 fL 81.0 - 99.0 fL [facility] MONOCYTES ABSOLUTE AUTO 0.5 N [facility] Monocytes/100 WBC (Bld) 6.4 % 1.7 - 12.0 % [facility] NEUTROPHILS ABSOLUTE AUTO 4.8 [facility] Neutrophils/100 WBC (Bld) 60.8 % 43.0 - 75. 0 % [facility] Platelet mean volume (Bld) [Entitic vol] 9.9 fL 9.5 - 13.5 fL [facility] Healthcare TBH EO # 0.1 [facility] PLT 253 [facility] RBC 4.39 [facility] WBC 7.9 [facility] Vital Signs Date Time Vital Sign Value Performing Clinician Ben lowery 09-19-2024 09:37-0500 Body mass index (BMI) [Ratio] 25.61 kg/m2 Binta Avilak [employer] [address] Work Phone: [facility] 09-19-2024 09:37-0500 Body temperature 96.69 [degF] Binta Bricetrick [employer] [address] Work Phone: [facility] 09-19-2024 09:37-0500 Body weight 67.68 kg Binta Avilak [employer] [address] Work Phone: [facility] 09-19-2024 09:37-0500 Diastolic blood pressure 62 mm[Hg] Binta Campospatrick [address] [address] Work Phone: [facility] 09-19-2024 09:37-0500 Heart rate 91 /min Binta Campospatrick [employer] [address] [address] Work Phone: [facility] 09-19-2024 09:37-0500 Respiratory rate 16 /min Binta Bricetrick [address] [employer] [address] Work Phone: [facility] 09-19-2024 09:37-0500 SaO2% (BldA) [Mass fraction] 95 % Binta Bricetrick [address] [address] Work Phone: [facility] 09-19-2024 09:37-0500 Systolic blood pressure 118 mm[Hg] Binta Nair [address] [employer] [address] Work Phone: [facility] 08-30-2024 13:12-0400 Body height 162.6 cm Christopher Patti DO Work Phone: [facility] 08-30-2024 13:12-0400 Body mass index (BMI) [Ratio] 25.78 kg/m2 Christopher Patti DO Work Phone: [facility] 08-30-2024 13:12-0400 Body weight 68.13 kg Christopher Patti DO Work Phone: [facility] 08-30-2024 13:12-0400 Diastolic blood pressure 86 mm[Hg] Christopher Patti DO Work Phone: [facility] 08-30-2024 13:12-0400 Heart rate 64 /min Christopher Patti DO Work Phone: [facility] 08-30-2024 13:12-0400 SaO2% (BldA) [Mass fraction] 94 % Christopher Patti DO Work Phone: [facility] 08-30-2024 13:12-0400 Systolic blood pressure 142 mm[Hg] Christopher Patti DO Work Phone: [facility] 06-07-2024 10:00-0400 Body height 163.83 cm [facility] 06-07-2024 10:00-0400 Body mass index (BMI) [Ratio] 25.2 kg/m2 [facility] 06-07-2024 10:00-0400 Body temperature 97.6 [degF] [facility] 06-07-2024 10:00-0400 Body weight 67.81 kg [facility] 06-07-2024 10:00-0400 Heart rate 68 /min [facility] 06-07-2024 10:00-0400 Respiratory rate 16 /min [facility] 06-07-2024 10:00-0400 SaO2% (BldA) [Mass fraction] 92 % [facility] 04-14-2024 11:06-0400 Body height 165.1 cm [facility] 04-14-2024 11:06-0400 Body mass index (BMI) [Ratio] 25.7 kg/m2 [facility] 04-14-2024 11:06-0400 Body temperature 97.7 [degF] [facility] 04-14-2024 11:06-0400 Body weight 70.3 kg [facility] 04-14-2024 11:06-0400 Heart rate 72 /min [facility] 04-14-2024 11:06-0400 SaO2% (BldA) [Mass fraction] 98 % [facility] 03-11-2024 11:18-0400 Body height 165.1 cm [facility] 03-11-2024 11:18-0400 Body mass index (BMI) [Ratio] 28.7 kg/m2 [facility] 03-11-2024 11:18-0400 Body temperature 98.6 [degF] [facility] 03-11-2024 11:18-0400 Body weight 78.24 kg [facility] 03-11-2024 11:18-0400 Heart rate 57 /min [facility] 03-11-2024 11:18-0400 Respiratory rate 16 /min [facility] 03-11-2024 11:18-0400 SaO2% (BldA) [Mass fraction] 97 % [facility] Encounters Encounter Date Encounter Type Care Provider Facility Start: 09-27-2024 End: 09-28-2024 ambulatory DORIS TURCIOS Not Available Start: 09-22-2024 End: 09-22-2024 ambulatory ROSEMARY RODRÍGUEZ Not Available Start: 09-22-2024 End: 09-22-2024 Bamboo flowsheet Rosemary Rodríguez PT Work Phone: [facility] Start: 09-22-2024 End: 09-22-2024 Bamboo flowsheet Rosemary Rodríguez PT Work Phone: [facility] Start: 09-20-2024 End: 09-20-2024 Bamboo flowsheet Essence Schmidt PRODUCT SAFETY AND STANDARDS ENGINEER [facility] Start: 09-20-2024 End: 09-20-2024 Bamboo flowsheet Essence Schmidt [employer]ODUCT SAFETY AND STANDARDS ENGINEER [facility] Start: 09-20-2024 End: 09-20-2024 ambulatory Essence Schmidt [employer]ODUCT SAF[employer] AND STANDARDS ENGINEER [facility] Comment on above: Low back pain at mul tiple sites (Primary Dx); Multilevel degenerative disc disease Start: 09-19-2024 End: 09-19-2024 Bamboo flowsheet Binta Bricetrick [employer] [address] Work Phone: [facility] Start: 09-19-2024 End: 09-19-2024 Bamboo flowsheet Binta Avilak [address] [address] Work Phone: [facility] Start: 09-19-2024 End: 09-19-2024 Telephone encounter Chiquita Guy [facility] Comment on above: appointment due Start: 09-19-2024 End: 09-19-2024 Office outpatient visit 15 minutes Binta Nair [employer] [address] [address] Work Phone: [facility] Comment on above: Cervical spondylosis with radiculopathy (Primary Dx); Other insomnia; Generalized anxiety disorder (CMS/HCC); Bipolar affective disorder in remission (CMS/HCC); Atherosclerosis of aorta (CMS/HCC) Start: 09-19-2024 End: 09-19-2024 ambulatory BINTA NAIR Not Available Start: 09-14-2024 End: 09-14-2024 Bamboo flowsheet Essence Schmidt [employer]ODUCT S[employer]ETY AND STANDARDS ENGINEER [facility] Start: 09-14-2024 End: 09-14-2024 Bamboo flowsheet Essence Schmidt [employer]ODUCT SAFETY AND STANDARDS ENGINEER [facility] Start: 09-14-2024 End: 09-14-2024 ambulatory Essence Schmidt [employer] SAF[employer]Y AND STANDARDS ENGINEER [facility] Comment on above: Low back pain at mul tiple sites (Primary Dx); Multilevel degenerative disc disease Start: 09-12-2024 End: 09-12-2024 Bamboo flowsheet Doris Turcios PT [facility] Start: 09-12-2024 End: 09-12-2024 Bamboo flowsheet Doris Turcios PT [facility] Start: 09-12-2024 End: 09-12-2024 ambulatory Doris Turcios PT [facility] Comment on above: Low back pain at [facility] tiple sites (Primary Dx); Multilevel degenerative disc disease Start: 09-06-2024 End: 09-06-2024 ambulatory Doris Turcios PT [facility] Comment on above: Low back pain at [facility] tiple sites (Primary Dx); Multilevel degenerative disc disease Start: 09-01-2024 End: 09-01-2024 [facility] Result Encounter Binta Nair [employer] [address] Work Phone: [facility] Unsolicited Start: 09-01-2024 End: 09-01-2024 [facility] Result Encounter Binta Nair [employer] [address] Work Phone: [facility] Unsolicited Start: 08-30-2024 End: 08-30-2024 Bamboo flowsheet Christopher Patti DO Work Phone: [facility] Start: 08-30-2024 End: 08-30-2024 Bamboo flowsheet Christopher Patti DO Work Phone: [facility] Start: 08-30-2024 End: 08-30-2024 Office outpatient new 45 minutes Christopher Patti DO Work Phone: [facility] Comment on above: Low back pain at [facility] tiple sites (Primary Dx); Multilevel degenerative disc disease Start: 08-30-2024 End: 08-30-2024 ambulatory CHRISTOPHER PATTI Not Available Start: 08-22-2024 End: 08-22-2024 Refill Binta Nair [employer] [address] Work Phone: [facility] Comment on above: Other insomnia (Prim victorino Dx) Start: 08-21-2024 End: 08-21-2024 Orders Only Binta Avilak [employer] [address] Work Phone: [facility] Comment on above: Depression, unspecif ied depression type (CMS/HCC) (Primary Dx); Bipolar affective disorder in remission (CMS/HCC) Start: 08-08-2024 Patient encounter status Hui Saxenazpatrick [employer] [address] Work Phone: [facility] Start: 08-08-2024 End: 08-08-2024 ambulatory BINTA VICTORINA Not Available Start: 06-07-2024 End: 06-07-2024 ambulatory [facility] Work Phone: Start: 06-07-2024 End: 06-07-2024 Patient encounter procedure [facility] Work Phone: Start: 04-14-2024 End: 04-14-2024 ambulatory [facility] Work Phone: Start: 04-14-2024 End: 04-14-2024 Patient encounter procedure [facility] Work Phone: Start: 03-11-2024 End: 03-11-2024 ambulatory [facility] Work Phone: Start: 03-11-2024 End: 03-11-2024 Patient encounter procedure [facility] Work Phone: Start: 12-20-2023 End: 12-21-2023 ambulatory ALEE KINCAID [facility] Start: 12-20-2023 Refill Alee Kincaid [employer] Work Phone: [facility] Start: 12-01-2023 Refill Alee Kincaid [employer] INS[employer] Work Phone: [facility] Comment on above: Insomnia, unspecifie d type Start: 11-10-2023 Refill Alee Kincaid [employer] INSPECTOR Work Phone: [facility] Comment on above: Degeneration of inte rvertebral disc of cervical region; Post-traumatic osteoarthritis of right ankle; Cervical spondylosis with radiculopathy; Other chronic pain Procedures Date Procedure Procedure Detail Performing Clinician Start: 09-01-2024 ALL CBC WITH AUTO DIFF Binta Nair NP Work Phone: Start: 12-20-2023 Mammography Alee jacobs BOOM MAN-BEAM HOUSE INSPECTOR Work Phone: Start: 04-26-2023 Adult depression screening assessment Alee Kincaid [employer]BEAM HOUSE INSPECTOR Work Phone: Start: 09-23-2022 Mammography Alee jacobs [employer]OM [employer]BEAM HOUSE INSPECTOR Work Phone: Plan of Treatment Date Care Activity Detail Author Start: 01-25-2026 Screening for malign ant neoplasm of colon [facility] Start: 09-19-2025 Pneumococcal Vaccine : 65+ Years (1 of 1 - PCV) Pneumococcal Vaccine: 65+ Years (1 of 1 - PCV) [facility] Comment on above: Postponed from 10/24 (Patient Refused) Start: 03-19-2025 End: 03-19-2025 Patient encounter procedure 03/19/2025 2:00 PM EDT Office Visit [facility] [address] [place] [address] Binta Nair, EMMA [address] [place] [id number] [facility] Start: 12-20-2024 Screening for malign ant neoplasm of breast Mammogram [facility] Start: 09-28-2024 End: 09-28-2024 Patient encounter procedure 09/28/2024 2:40 PM EST Office Visit [facility] [address] [place] [phone] Isabel Hanson NP [address] [place], [place] [id number] [facility] Start: 09-27-2024 End: 09-27-2024 ambulatory 09/27/2024 3:00 PM EST Treatment [facility] [address] [place] [address] Doris Turcios, PT [facility] Start: 09-22-2024 End: 09-22-2024 ambulatory [facility] Start: 09-20-2024 End: 09-20-2024 ambulatory 09/20/2024 1:30 PM EST Treatment [facility] [address] [place] [address] Essence Schmidt PTA [facility] Start: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 remission ([facility]/HCC) Gastroesophageal reflux disease, unspecified whether esophagitis present Screening for diabetes mellitus Screening for hyperlipidemia Screening for lipoid disorders Hyperlipidemia, unspecified hyperlipidemia type ([facility]/HCC) Low back pain at multiple sites- Primary Multilevel degenerative disc disease [facility] Diagnosis Wellness examination- Primary Encounter to establish care Bipolar affective disorder in remission ([facility]/HCC) Gastroesophageal reflux disease, unspecified whether esophagitis present Screening for diabetes mellitus Screening for hyperlipidemia Screening for lipoid disorders Hyperlipidemia, unspecified hyperlipidemia type ([facility]) Low back pain at multiple sites- Primary Multilevel degenerative disc disease [facility] Diagnosis Wellness examination- Primary Encounter to establish care Bipolar affective disorder in remission ([facility]/HCC) Gastroesophageal reflux disease, unspecified whether esophagitis present Screening for diabetes mellitus Screening for hyperlipidemia Screening for lipoid disorders Hyperlipidemia, unspecified hyperlipidemia type ([facility]/HCC) Low back pain at multiple sites- Primary Multilevel degenerative disc disease [facility] Diagnosis Wellness examination- Primary Encounter to establish care Bipolar affective disorder in remission ([facility]/HCC) Gastroesophageal reflux disease, unspecified whether esophagitis present Screening for diabetes mellitus Screening for hyperlipidemia Screening for lipoid disorders Hyperlipidemia, unspecified hyperlipidemia type ([facility]/HCC) Cervical spondylosis with radiculopathy- Primary Cervical spondylosis with myelopathy Other insomnia Generalized anxiety disorder ([facility]/HCC) Generalized anxiety disorder Bipolar affective disorder in remission ([facility]/HCC) Atherosclerosis of aorta ([facility]) Atherosclerosis of aorta [facility] Diagnosis Wellness examination- Primary Encounter to establish care Bipolar affective disorder in remission ([facility]/HCC) Gastroesophageal reflux disease, unspecified whether esophagitis present Screening for diabetes mellitus Screening for hyperlipidemia Screening for lipoid disorders Hyperlipidemia, unspecified hyperlipidemia type ([facility]/HCC) Cervical spondylosis with radiculopathy- Primary Cervical spondylosis with myelopathy Other insomnia Generalized anxiety disorder (CMS/HCC) Generalized anxiety disorder Bipolar affective disorder in remission (CMS/HCC) Atherosclerosis of aorta (CMS/HCC) Atherosclerosis of aorta Low back pain at multiple sites- Primary Multilevel degenerative disc disease documented in this encounter [facility]InstructionsNot on filedocumented in this [facility] SystemInstructionsNot on filedocumented in this [facility] SystemInstructionsNot on filedocumented in this [facility] SystemInstructionsNot on filedocumented in this [facility] Reason for visit Narrative* Rehabilitation - Outpatient (Routine) - Pending Review Specialty Diagnoses / Procedures Referred By Contac t Referred To Contact Physical Therapy Diagnoses Low back pain at multiple sites Multilevel degenerative disc disease Procedures DC OFFICE/OUTPATIENT [facility] MDM 60 MINUTES Hilario Armstrong, DO [address] [place] [address] Phone: tel: fax: [facility] [address] [facility] [address] [place] [address] Phone: tel: fax: Referral ID Status Reason Start Date Expiration Date Visits Requested Visits Authorized [id number] Pending Review Specialty Services Required Consult and Treat 4 02/26/2025 1 1 [facility] Narrative* Rehabilitation - Outpatient (Routine) - Authorized Specialty Diagnoses / Procedures Referred By Contac t Referred To Contact Physical Therapy Diagnoses Low back pain at multiple sites Multilevel degenerative disc disease Procedures DC OFFICE/OUTPATIENT [facility] MDM 60 MINUTES Hilario Armstrong DO [address] [place] [address] Phone: tel: fax: [facility] [address] [facility] [address] [place] [address] Phone: tel: fax: Referral ID Status Reason Start Date Expiration Date Visits Requested Visits Authorized [id number] Authorized Specialty Services Required Consult and Treat 4 02/26/2025 99 99 [facility] Summary Purpose Family History No Family History Records Found Relationship Condition Age at Onset Recorded Date/T edward father Malignant neoplasm Unknown Not Specified Dementia Unknown Relationship Condition Age at Onset Recorded Date/T edward father Malignant neoplasm Unknown mother Dementia Unknown Advance Directives No Advanced Directives Records Found Advance Directive Response Recorded Date/ Time Advance Directives No March 11 10:40am Chief Complaint and Reason for Visit Chief Complaint Rash, skin irritatio n Chief Complaint Rash, skin irritatio n Rash Reason for Visit Contact dermatitis Contact dermatitis Chief Complaint Rash, skin irritatio n Rash Rash on arms, face, neck Reason for Visit Contact dermatitis Contact dermatitis Additional Source Comments Reason for Visit (unrecogniz ed section and content) Reason Comments Med Refill Reason Onset Date Comments Med Refill 08/22/2024 Reason Onset Date Comments appointment due 09/19/2024 Care Teams (unrecognized sec tion and content) Reverse Logistics Analyst Relationship Specialty Start Date End Date Alee Kincaid APRN-VOLODYMYR 1987 [place] [address] PCP - General 09/06/14 Reverse Logistics Analyst Relationship Specialty Start Date End Date Alee Kincaid APRN-CNP 1987 [place] [address] PCP - General 09/06/14 Reverse Logistics Analyst Relationship Specialty Start Date End Date Alee Kincaid APRN-CNP 1987 [place] [phone] PCP - General 09/06/14 Team Status: Active Member Role Status Dates Alee Kincaid APRN Primary Care Provider Active Team Status: Inactive Member Role Status Dates NILESH Leslie Attending Provider Active S tart: March 11, 2024 End: March 11, 2024 Alee Kincaid APRN Primary Care Provider Active Start: March 11, 2024 End: March 11, 2024 Team Status: Inactive Member Role Status Dates Alee Kincaid APRN Primary Care Provider Active Start: April 14, 2024 End: April 14, 2024 Radha Bueno APRN Attending Provider Active Start: April 14, 2024 End: April 14, 2024 Team Status: Inactive Member Role Status Dates Alee Kincaid APRN Primary Care Provider Active Start: June 07, 2024 End: June 07, 2024 Radha Bueno APRN Attending Provider Active Start: June 07, 2024 End: June 07, 2024 Reverse Logistics Analyst Relationship Specialty Start Date End Date Colin Sanchez MD [address] [place] [phone] PCP - General Family Medicine 07/24/24 Binta Nair NP [address] [place] [address] Nurse Practitioner Family Medicine 07/24/24 Reverse Logistics Analyst Relationship Specialty Start Date End Date Colin Sanchez MD [address] [place] [id number] PCP - General Family Medicine 07/24/24 Binta Nair NP [address] [place] [phone] Nurse Practitioner Family Medicine 07/24/24 Reverse Logistics Analyst Relationship Specialty Start Date End Date Colin Sanchez MD [address] [place] [phone] PCP - General Family Medicine 07/24/24 Binta Nair NP [address] [place] [phone] Nurse Practitioner Family Medicine 07/24/24 Reverse Logistics Analyst Relationship Specialty Start Date End Date Colin Sanchez MD [address] [place] [phone] PCP - General Family Medicine 07/24/24 Binta Nair NP [address] [place] [address] Nurse Practitioner Family Medicine 07/24/24 Reverse Logistics Analyst Relationship Specialty Start Date End Date Colin Sanchez MD [address] [place] [address] PCP - General Family Medicine 07/24/24 Binta Nair NP [address] [place] [address] Nurse Practitioner Family Medicine 07/24/24 Reverse Logistics Analyst Relationship Specialty Start Date End Date Colin Sanchez MD [address] [place] [phone] PCP - General Family Medicine 07/24/24 Binta Nair NP [address] [place] [address] Nurse Practitioner Family Medicine 07/24/24 Reverse Logistics Analyst Relationship Specialty Start Date End Date Colin Sanchez MD [address] [place] [phone] PCP - General Family Medicine 07/24/24 Binta Nair NP [address] [place] [address] Nurse Practitioner Family Medicine 07/24/24 Reverse Logistics Analyst Relationship Specialty Start Date End Date Colin Sanchez MD [address] [place] [phone] PCP - General Family Medicine 07/24/24 Binta Nair NP [address] [place] [address] Nurse Practitioner Family Medicine 07/24/24 Reverse Logistics Analyst Relationship Specialty Start Date End Date Colin Sanchez MD [address] [place] [phone] PCP - General Family Medicine 07/24/24 Binta Nair NP [address] [place] [address] Nurse Practitioner Family Medicine 07/24/24 Reverse Logistics Analyst Relationship Specialty Start Date End Date Colin Sanchez MD [address] [place] [phone] PCP - General Family Medicine 07/24/24 Binta Nair NP [address] [place] [address] Nurse Practitioner Family Medicine 07/24/24 Reverse Logistics Analyst Relationship Specialty Start Date End Date Colin Sanchez MD [address] [place] [address] PCP - General Family Medicine 07/24/24 Binta Nair NP [address] [place] [address] Nurse Practitioner Family Medicine 07/24/24 Reverse Logistics Analyst Relationship Specialty Start Date End Date Colin Sanchez MD [address] [place] [address] PCP - General Family Medicine 07/24/24 Binta Nair NP [address] [place] [address] Nurse Practitioner [facility] 07/24/24 Reverse Logistics Analyst Relationship Specialty Start Date End Date Colin Sanchez MD [address] [place] [address] PCP - General Family [facility] 07/24/24 Binta Nair NP [address] [place] [address] Nurse Practitioner [facility] 07/24/24 INFORMATION SOURCE (unrecogn ized section and content) DATE CREATED AUTHOR 12/25/2023 [facility] DATE CREATED AUTHOR AUTHOR'S ORGANIZ ATION 09/30/2024 [facility] EPIC Goals (unrecognized section and content) Goals may be documented in a n alternate section FOR RECORDS PERTAINING TO PATIENTS WHO ARE [...] BE BASED ON THE PRIMARY CLINICAL RECORDS. [facility] provides no warranty or guarantee of the accuracy or completeness of information in this document.
--- NOTE | 2024-09-30 15:15 | ED_ITS ---
HPI HPI - General Adult General Chief complaint: Recheck/Abnormal Lab/Rx Stated complaint: GENERAL WEAKNESS Time Seen by Provider: 09/30/24 14:22 Source: patient Mode of arrival: walk-in History of Present Illness HPI narrative: The patient is coming to the ER requesting refill on her clonazepam after she recently had a problem with her prescription she usually takes 3 mg dose of before going to sleep due to her history of nightmare.. Patient is tearful denies any other complaint Related Data Home Medications ?Medication ?Instructions ?Recorded ?Confirmed clonazepam 2 mg tablet 3 mg PO QPM 04/09/24 04/09/24 duloxetine 60 mg capsule,delayed 60 mg PO QAM 04/09/24 04/09/24 release pantoprazole 40 mg tablet,delayed 40 mg PO DAILY 04/09/24 04/09/24 release trazodone 150 mg tablet 75 mg PO QPM 04/09/24 04/09/24 Previous Rx's ?Medication ?Instructions ?Recorded clonazepam 2 mg tablet 3 mg (1.5 x 2 mg) PO DAILY 2 days 09/30/24 #3 tabs Allergies Allergy/AdvReac Type Severity Reaction Status Date / Time acetaminophen (From Vicodin) Allergy Mild Nausea Verified 04/09/24 10:36 hydrocodone (From Vicodin) Allergy Mild Nausea Verified 04/09/24 10:36 Opioid HPI Opioid Management Most Recent Opioid Data: No Data to Display Review of Systems ROS Status of ROS 10 or more systems reviewed and unremark able except as noted in history and below Exam Narrative Exam Narrative: Nurses notes and vital signs reviewed and patient is not hypoxic. General: Well-appearing and in no apparent distress. Skin: Warm, dry, no pallor noted. No rash. Head: Normocephalic, atraumatic. Neck: Supple, non-tender. Eye: Pupils are equal, round and EOMI. No scleral icterus. Ears, Nose, Mouth, and Throat: TM are clear, no nasal mucosal hypertrophy. Oral mucosa is moist, no posterior oropharynx erythema, uvula is mid-line Cardiovascular: Regular Rate and Rhythm without murmur, gallop or rub. Respiratory: No accessory muscle use or respiratory distress. Lungs are clear to auscultation, no wheezing, rales or rhonchi Chest Wall: no tenderness Back: No midline thoracic or lumbar vertebral tenderness. No CVA tenderness Musculoskeletal: normal ROM, no calf or popliteal tenderness, no lower extremity edema/swelling GI: Abdomen is soft, non-distended. Normal bowel sounds. No masses appreciated. No tenderness to palpation. No rebound, guarding, or rigidity noted. Neurological: A&O x4. No cranial nerve dysfunction observed. No truncal ataxia. Moves all extremities. Sensation intact. Psychiatric: Cooperative and interactive. Normal mood and affect. Constitutional Vital Signs, click to edit/add: Last Vital Signs Temp 98.5 F 09/30/24 14:14 Pulse 102 H 09/30/24 14:14 Resp 22 H 09/30/24 14:14 BP 169/101 H 09/30/24 14:14 Pulse Ox 98 09/30/24 14:14 O2 Del Method Room Air 09/30/24 14:14 Course Vital Signs Vital signs: Vital Signs Temperature 98.5 F 09/30/24 14:14 Pulse Rate 102 H 09/30/24 14:14 Respiratory Rate 22 H 09/30/24 14:14 Blood Pressure 169/101 H 09/30/24 14:14 Pulse Oximetry 98 09/30/24 14:14 Oxygen Delivery Method Room Air 09/30/24 14:14 Temperature 98.5 F 09/30/24 14:14 Pulse Rate 102 H 09/30/24 14:14 Respiratory Rate 22 H 09/30/24 14:14 Blood Pressure 169/101 H 09/30/24 14:14 Pulse Oximetry 98 09/30/24 14:14 Oxygen Delivery Method Room Air 09/30/24 14:14 Medical Decision Making [facility] Narrative Medical decision making narrative: I did review the patient medication including the monitored medication and she does take a monthly prescription of 3 mg daily of clonazepam but apparently last month she had some issue with the prescription Right now the patient will be provided with 2 doses of clonazepam for the weekend and she will follow-up with her doctor on Wednesday The patient is to follow up with primary care physician in next 2-3 days or to return to the emergency department should any of the signs or symptoms worsen or new symptoms develop. The patient agrees with the following Diagnosis and Treatment plan and the patient will be discharged home. Discharge Plan Discharge Chief Complaint: Recheck/Abnormal Lab/Rx Clinical Impression: Medication refill, Anxiety Patient Disposition: Home, Self-Care Time of Disposition Decision: 14:42 Condition: Good Prescriptions / Home Meds: New clonazepam 2 mg tablet 3 mg PO DAILY 2 Days Qty: 3 0RF No Action clonazepam 2 mg tablet 3 mg PO QPM duloxetine 60 mg capsule,delayed release(DR/EC) 60 mg PO QAM trazodone 150 mg tablet 75 mg PO QPM pantoprazole 40 mg tablet,delayed release (DR/EC) 40 mg PO DAILY Print Language: Spanish Instructions: Medicine Refill (ED) Referrals: CHRISS PRAJAPATI [Primary Care Provider] - 1 week Discharge Date/Time: 09/30/24 14:50
== END 2024-09-30 14:50 | disposition home or self-care (01) ==
PROVIDERS: Emergency Provider Emergency Medicine; Family Provider Internal Medicine
DX: Z76.0 Encounter for issue of repeat prescription (principal); F41.9 Anxiety disorder, unspecified
CPT/HCPCS: 99283

== ENCOUNTER 2024-12-10 17:35 | Emergency (ER) | payer MEDICARE, SELFPAY ==
[2024-12-10 17:42] VITALS: BP 131/79; PULSE 82; TEMP 36.9; O2SAT 99; BMI 24.4
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
--- NOTE | 2024-12-10 18:44 | ED.GENADUL1 ---
HPI HPI - General Adult General Chief complaint: Recheck/Abnormal Lab/Rx Stated complaint: Medication Refill Time Seen by Provider: 12/10/24 17:49 Source: patient Mode of arrival: walk-in History of Present Illness HPI narrative: 69-year-old male presents here for medication refill. Patient states she is out of her Klonopin. She takes 3 mg nightly. She states she is currently in between physicians as she was fired from her physician's practice. Patient is tearful states she needs her medication. She was seen here for a similar refill in September. Otherwise has been getting her refills from her PCP. Related Data Home Medications ?Medication ?Instructions ?Recorded ?Confirmed clonazepam 2 mg tablet 3 mg PO QPM 04/09/24 12/10/24 duloxetine 60 mg capsule,delayed 60 mg PO QAM 04/09/24 12/10/24 release pantoprazole 40 mg tablet,delayed 40 mg PO DAILY 04/09/24 12/10/24 release trazodone 150 mg tablet 75 mg PO QPM 04/09/24 12/10/24 Previous Rx's ?Medication ?Instructions ?Recorded clonazepam 2 mg tablet 3 mg (1.5 x 2 mg) PO DAILY 2 days 09/30/24 #3 tabs clonazepam 2 mg tablet 3 mg (1.5 x 2 mg) PO DAILY 9 days 12/10/24 #14 tabs Allergies Allergy/AdvReac Type Severity Reaction Status Date / Time acetaminophen (From Vicodin) Allergy Mild Nausea Verified 12/10/24 17:41 hydrocodone (From Vicodin) Allergy Mild Nausea Verified 12/10/24 17:41 Opioid HPI Opioid Management Most Recent Opioid Data: No Data to Display Review of Systems ROS Narrative All Systems are negative except as noted/marked.All systems reviewed and otherwise negative PFSH PFSH Social History Little interest or pleasure in doing things: more than half the days Feeling down, depressed, or hopeless: not at all Exam Narrative Exam Narrative: All Systems are negative except as noted/marked.All systems reviewed and otherwise negative Nurses note and vital signs reviewed and patient is not hypoxic. General: The patient appears well and in no apparent distress. Patient is resting comfortably on cart. Skin: Warm, dry, no pallor noted. There is no rash noted. Head: Normocephalic, atraumatic Eye: Normal conjunctiva, no drainage, EOMI. PERRL Ears, Nose, Mouth, and Throat: oral mucosa is moist. Nares patent. Mouth without vesicles. Ear canals patent. Tm's without Erythema Cardiovascular: Regular Rate and Rhythm Respiratory: Patient is in no distress, no accessory muscle use, lungs are clear to auscultation, no wheezing, rales or rhonchi Back: non-tender, no CVA tenderness bilaterally to percussion. GI: Normal bowel sounds, no tenderness to palpation, no masses appreciated. No rebound, guarding, or rigidity noted. Musculoskeletal: The patient has no evidence of calf tenderness, no pitting edema, symmetrical pulses noted bilaterally Neurological: A&O x4, normal speech Psychiatric: Cooperative Constitutional Vital Signs, click to edit/add: Last Vital Signs Temp 98.4 F 12/10/24 17:42 Pulse 82 12/10/24 17:42 Resp 16 12/10/24 17:42 BP 131/79 12/10/24 17:42 Pulse Ox 99 12/10/24 17:42 O2 Del Method Room Air 12/10/24 17:42 Course Vital Signs Vital signs: Vital Signs Temperature 98.4 F 12/10/24 17:42 Pulse Rate 82 12/10/24 17:42 Respiratory Rate 16 12/10/24 17:42 Blood Pressure 131/79 12/10/24 17:42 Pulse Oximetry 99 12/10/24 17:42 Oxygen Delivery Method Room Air 12/10/24 17:42 Temperature 98.4 F 12/10/24 17:42 Pulse Rate 82 12/10/24 17:42 Respiratory Rate 16 12/10/24 17:42 Blood Pressure 131/79 12/10/24 17:42 Pulse Oximetry 99 12/10/24 17:42 Oxygen Delivery Method Room Air 12/10/24 17:42 Medical Decision Making MDM Narrative Medical decision making narrative: Medication refill. She has not had her medication as she is currently between physicians has a new doctor's appointment scheduled for December 18. I advised her hide will give her a refill only until December 18 for 3 mg 1-1/2 of the 2 mg tablets until 18 December. OAR[facility] report was reviewed. Differential Diagnosis Differential Diagnosis: Medication refill Medical Records Medical records reviewed: Yes I reviewed the patient's medical records Lab Data Lab results reviewed: Yes I reviewed the patient's lab results Discharge Plan Discharge Chief Complaint: Recheck/Abnormal Lab/Rx Clinical Impression: Medication refill Patient Disposition: Home, Self-Care Time of Disposition Decision: 18:53 Condition: Good Prescriptions / Home Meds: New clonazepam 2 mg tablet 3 mg PO DAILY 9 Days Qty: 14 0RF No Action clonazepam 2 mg tablet 3 mg PO QPM duloxetine 60 mg capsule,delayed release(DR/EC) 60 mg PO QAM trazodone 150 mg tablet 75 mg PO QPM pantoprazole 40 mg tablet,delayed release (DR/EC) 40 mg PO DAILY clonazepam 2 mg tablet 3 mg PO DAILY 2 Days Qty: 3 0RF Print Language: Lithuanian Instructions: Medicine Refill (ED) Referrals: Physician,Non-Staff, MD [Primary Care Provider] - 1 week
== END 2024-12-10 19:05 | disposition home or self-care (01) ==
PROVIDERS: Emergency Provider Emergency Medicine; Family Provider Internal Medicine
DX: Z76.0 Encounter for issue of repeat prescription (principal)
CPT/HCPCS: 99283